=== PATIENT | female | born 1980 | race Caucasian/White ===

== ENCOUNTER → 2020-02-06 12:38 | Outpatient (CLI) | payer OTHER, MEDICAID, SELFPAY ==
--- NOTE | ~2020-02-06 | MR_ITS ---
EXAMINATION: MR brain/brain stem wo con DATE: 02/06/2020 13:23 INDICATION: Chronic migraines. Memory disturbance. TECHNIQUE: Magnetic resonance imaging (MRI) of the brain and brainstem was performed without intraven ous contrast. Sequences included sagittal and axial T1-weighted FSE, axial diffusion-weighted FS EPI, axial T2*-weighted GRE, axial T2-weighted FLAIR Propeller, and axial T2-weighted Propeller. Apparent diffusion coefficient (ADC) maps were created. COMPARISON: Head CT 07/06/2007 FINDINGS: There is no intracranial hemorrhage, acute infarction, or abnormal intracranial mass lesion . The ventricles are normal in size. The paranasal sinuses are clear. The orbits are normal. The mast oid air cells are normal. IMPRESSION: 1. Normal brain. Reviewed, dictated and finalized at location A. IMPRESSION: 1. Normal brain.
== END ==
DX: G43.711 Chronic migraine without aura, intractable, with status migrainosus (principal); R41.3 Other amnesia
CPT/HCPCS: 70551

== ENCOUNTER → 2020-06-04 15:24 | Outpatient (CLI) | payer OTHER, MEDICAID, SELFPAY ==
--- NOTE | ~2020-06-04 | XR_ITS ---
EXAMINATION: XR lumbar spine 2-3V, XR sacroiliac joints min 3V DATE: 06/04/2020 18:26 INDICATION: Polyarthralgia with low back and sacroiliac pain. TECHNIQUE: 1. Anteroposterior and lateral views of the lumbar spine, and cone-down lateral view of the lumbosacr al junction were obtained. 2. AP and left and right oblique views of the sacroiliac joints were obtained. COMPARISON: None. FINDINGS: Bilateral hypoplastic riblets at L1 with 12 more cephalad third rib bearing thoracic segments T1-T12 seen on CT dated 07/06/2007. There are 4 more caudal nonrib-bearing lumbar segments L2-L5. Alignment i s normal. Lumbar vertebral body and disc heights are normal. Mild disc height loss at T9-T10 and T10- T11. Moderate facet osteoarthritis at L5-S1, left greater than right. Mild facet osteoarthritis in th e more cephalad lumbar spine. There is also mild bilateral sacroiliac and mild bilateral hip osteoart hritis. No erosions at the sacroiliac joints to suggest inflammatory sacroiliitis. No fractures. Chol ecystectomy clips in the upper abdomen. IMPRESSION: 1. Polyarticular osteoarthritis, moderate at the bilateral L5-S1 facet joints and mild at the bilater al sacral iliac, hip and several more cephalad lumbar facet joints. Reviewed, dictated and finalized at location A. ETEER IMPRESSION: 1. Polyarticular osteoarthritis, moderate at the bilateral L5-S1 facet joints a nd mild at the bilateral sacral iliac, hip and several more cephalad lumbar fac et joints.
--- NOTE | ~2020-06-04 | XR_ITS ---
EXAMINATION: XR hand LT 2V, XR hand RT 2V DATE: 06/04/2020 18:26 INDICATION: Polyarthralgia with chronic worsening bilateral hand pain and inflammation. TECHNIQUE: 1. Posteroanterior and lateral views of the left hand were obtained. 2. Posteroanterior and lateral views of the right hand were obtained. COMPARISON: None. FINDINGS: Normal alignment at the bilateral hands and wrists. No fractures. Joint spaces are relatively preserv ed with no erosions or osteophytosis. Soft tissues are unremarkable. IMPRESSION: 1. Negative bilateral hand radiographs. Reviewed, dictated and finalized at location A. E CRITIC IMPRESSION: 1. Negative bilateral hand radiographs.
== END ==
DX: M25.50 Pain in unspecified joint (principal); M51.36 Other intervertebral disc degeneration, lumbar region
CPT/HCPCS: 72100; 72202; 73120

== ENCOUNTER 2020-11-17 08:37 | Outpatient (CLI) | payer OTHER, SELFPAY ==
--- NOTE | ~2020-11-17 | MM_ITS ---
EXAMINATION: MM screening luz maria BI w zahida HISTORY: Screening mammogram TECHNIQUE: Craniocaudal and mediolateral oblique 3-D tomosynthesis images were obtained and synthetic 2-D images were generated. CAD analysis was submitted and interpreted. COMPARISON: No prior mammogram is available for comparison at this institution. BREAST PARENCHYMAL COMPOSITION: The breasts are almost entirely fatty. FINDINGS: There is no evidence of suspicious mass, calcification, or architectural distortion to sugg est malignancy in either breast. There has been no suspicious interval change. IMPRESSION: 1. No mammographic evidence of malignancy. 2. Recommend routine screening mammography in one year. BI-RADS Category 1: Negative Reviewed, dictated and finalized at location A.
== END 2020-11-17 08:38 | disposition home or self-care (01) ==
PROVIDERS: Visit Provider Family Medicine
DX: Z12.31 Encounter for screening mammogram for malignant neoplasm of breast (principal)
CPT/HCPCS: 77063; 77067

== ENCOUNTER 2022-03-19 14:00 | Outpatient (RCR) | payer OTHER, SELFPAY ==
--- NOTE | 2022-02-17 14:47 | PTOPEVAL1 ---
Assessment and note entered by Trista Mcginnis, PT Evaluation Information Assessment Status Evaluation Diagnosis balance problems Onset Dec 26 2021 Subjective Information Florencia reports: lose balance and fall into the wall, or catch self on something/furniture--have not hit the ground; use cane when go out for balance; some days, have to have help at home with everything, other days do OK; can do light house work, but takes longer to do things; not able to lift due to back pain; walks her dog and tries to do some stretching exercises; Reported Pain Level Pain Score 6: Self Report Additional Pain Score Comments with sleeping, awaken every few hours due to pain- -back and hips; also have pain in R and L knees; Assessment PT Clinical Summary Florencia has the diagnosis of balance issues. Her medical history includes: fibromyalgia, neuropathy of all 4 extremities, B knee pain, back pain, migraines, visual issues. She is using a cane PRN for balance issues, and has not had any falls to the ground, but has loss of balance and catches herself on furniture or [place]. She does not work outside the home. A neurologist is doing testing to determine if she has an autoimmune disease. With the evaluation, she reports having a good balance day today. 5 reps sit/stand is 21 seconds; Parada balance score is 53/56 and 2 minute walking distance is 320'; Mat leg exercises are limited due to pain in her hips and back. Skilled PT services are indicated for land and aquatic exercise, with the buoyancy effects of the warm water to ease her stress to joints and decrease pain with mobility, modalities for pain control and education for home exercise program and safety with mobility. Plan of Care Interventions Aquatic Therapy,Electrical Stimulation,Gait Training,Hot Pack/Cold Pack,Manual Therapy,Neuro Re-education,Patient/Caregiver Education,Therapeutic Activities,Therapeutic Exercise PT Services Indicated Yes Treatment Frequency and 2x/wk for 5 weeks Duration These treatments will address the objective and functional deficits as defined above. The patient will be advanced safely and appropriately in order for the patient to progress towards his/her prior level of function. Additional exercises will be introduced and as well as a comprehensive home exercise program upon discharge, if needed, ?to ensure carryover of functional gains achieved in the clini
--- NOTE | 2022-03-17 11:03 | PCPTNOTE ---
pt called and cancelled due to being ill;
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
== END 2022-03-19 15:19 | disposition home or self-care (01) ==
LOC: ANHPT 14:00
PROVIDERS: PCP Nurse Practitioner Adult Health; Visit Provider Nurse Practitioner Adult Health
DX: R26.81 Unsteadiness on feet (principal)
CPT/HCPCS: 97014; 97110; 97112; 97113; 97162; 97530; G0283